=== PATIENT | male | born 1995 | race Caucasian/White ===

== ENCOUNTER → 2024-05-06 12:22 | Outpatient (REF) | payer OTHER, SELFPAY | LOC: HWRAD 12:22 | PROVIDERS: ATTENDING PHYSICIAN Surgery; FAMILY PHYSICIAN Physician Assistant Medical | DX: N50.9 Disorder of male genital organs, unspecified (principal) | CPT/HCPCS: 76870; 93976 ==

== ENCOUNTER → 2025-02-19 07:44 | Outpatient (REF) | payer OTHER, SELFPAY | LOC: RAD 07:44 | PROVIDERS: ATTENDING PHYSICIAN Internal Medicine | DX: R10.32 Left lower quadrant pain (principal) | CPT/HCPCS: 74176 ==